=== PATIENT | female | born 1970 | race Caucasian/White ===

== ENCOUNTER 2017-01-12 20:08 | Emergency (ER) | payer BC ==
[~2017-01-12] VITALS: Ht 157.5 cm; Wt 107.9 kg
[~2017-01-12 20:08] MED LIST: ALIGN4 MG PO; AMBIEN5 M1 PO; AMBIEN5 MG; Ativan PO; BACTRIM,SEPT1 TABLET PO; CIPRO500 MG PO; CITALOPRAM HBR20 M1 PO; CLARITIN10 MG PO; CLONAZEPAM0.5 MG PO; DICLOFENAC SODI75 MG PO; FLONASE16 G1 BOTH NARES; IRON PO; IRON325 MG PO; KEFLEX500 MG PO; KLONOPIN0.5 M1 PO; LEXAPRO20 MG PO; LOPRESSOR25 MG PO; LOVAZA1 GM PO; MOTRIN600 MG PO; OMEPRAZOLE40 M1 PO; PAIN & FEVER325 MG PO; PROTONIX40 MG PO; SIMVASTATIN20 M1 PO; SIMVASTATIN40 MG PO; SOMA350 MG PO; TESSALON PERLE100 MG PO; TRAMADOL HCL50 MG PO; TRAZODONE HCL150 MG PO; TRI-SPRINTEC1 EACH PO; ZITHROMAX Z-PA250 MG PO; ZOFRAN4 MG PO; Zocor PO; celeXA PO
[2017-01-12 20:46] LABS: MCH 26.6 PG (29.0-34.0); MCHC 32.2 G/DL (30.0-36.0); MCV 82.6 FL (83-99); MEAN PLAT.VOLUME 8.7 uM^3 (9.5-12.4); PLATELET COUNT 274 K/uL (156-360); RBC DIS.WIDTH-CV 14.9 % (11.8-14.6); RED BLOOD COUNT 4.36 M/uL (3.80-5.20); WHITE BLOOD COUNT 9.8 K/uL (4.1-10.2)
[2017-01-12 20:54] LABS: CHLORIDE 106 mEq/L (99-109); POTASSIUM 4.2 mEq/L (3.7-5.4); SODIUM 138 mEq/L (136-147)
[2017-01-12 20:56] LABS: GLUCOSE 108 mg/dL (70-99)
[2017-01-12 20:57] LABS: ANION GAP 11 MEQ/L (2-14)
[2017-01-12 20:58] LABS: TOTAL BILIRUBIN 0.3 mg/dL (0.0-1.0)
[2017-01-12 21:00] LABS: ALKALINE PHOSPHATASE 51 IU/L (3-129); GFR ESTIMATE (CALCULATED) > 59 mL/min/
[2017-01-12 21:01] LABS: UREA NITROGEN (BUN) 10 mg/dL (9-23)
[2017-01-12 21:08] LABS: QUANTITATIVE HCG < 4.0 MIU/ML
[2017-01-12 22:53] LABS: LIPASE 12 U/L (1.0-51.0)
[2017-01-12 23:47] VITALS: BP 138/83
== END 2017-01-12 23:48 | disposition home or self-care (01) ==
LOC: EME 20:08
DX: R10.10 Upper abdominal pain, unspecified (principal); R19.7 Diarrhea, unspecified; G89.29 Other chronic pain; E78.5 Hyperlipidemia, unspecified; I10 Essential (primary) hypertension; K21.9 Gastro-esophageal reflux disease without esophagitis
CPT/HCPCS: 80053; 81003; 83690; 84702; 85027; 87493; 99281; 99284

== ENCOUNTER 2017-04-17 20:52 | Emergency (ER) | payer BC ==
[~2017-04-17] VITALS: Ht 157.5 cm; Wt 104.5 kg
[2017-04-17 21:46] LABS: HEMATOCRIT 40.9 % (36.0-46.0); MCH 27.5 PG (29.0-34.0); MCV 85.7 FL (83-99); MEAN PLAT.VOLUME 8.7 uM^3 (9.5-12.4); PLATELET COUNT 288 K/uL (156-360); RBC DIS.WIDTH-CV 15.3 % (11.8-14.6); RBC DIS.WIDTH-SD 48.1 % (39-53); RED BLOOD COUNT 4.77 M/uL (3.80-5.20); WHITE BLOOD COUNT 11.6 K/uL (4.1-10.2)
[2017-04-17 22:00] LABS: CHLORIDE 104 mEq/L (99-109); POTASSIUM 4.1 mEq/L (3.7-5.4); SODIUM 133 mEq/L (136-147)
[2017-04-17 22:02] LABS: GLUCOSE 215 mg/dL (70-99)
[2017-04-17 22:03] LABS: ANION GAP 8 MEQ/L (2-14)
[2017-04-17 22:05] LABS: ALKALINE PHOSPHATASE 64 IU/L (3-129)
[2017-04-17 22:06] LABS: GFR ESTIMATE (CALCULATED) > 59 mL/min/
[2017-04-17 22:07] LABS: UREA NITROGEN (BUN) 14 mg/dL (9-23)
[2017-04-17 22:15] LABS: QUANTITATIVE HCG < 4.0 MIU/ML
[2017-04-17 23:26] LABS: ADD MIUA? YES; BILIRUBIN NEGATIVE; BLOOD SMALL; COLOR YELLOW ((YELLOW)); GLUCOSE (STRIP) 50; KETONES NEGATIVE; LEUKOCYTES NEGATIVE; NITRITE NEGATIVE; PROTEIN (STRIP) 100; SPECIFIC GRAVITY 1.034 (1.000-1.030); UROBILINOGEN 0.2 MG/DL (0.2-1.0)
[2017-04-17 23:31] LABS: BACTERIA RARE /HPF; EPITHELIAL CELLS 1+ /HPF; MUCUS TRACE /LPF; RED BLOOD CELLS 0-5 /HPF (0-5); UCUL ADDED? NO; WHITE BLOOD CELLS 0-5 /HPF (0-5)
[2017-04-18] MEDS ORDERED: ZOFRAN ODT4 MG PO (01:44)
[2017-04-18 02:14] VITALS: BP 130/74
== END 2017-04-18 02:15 | disposition home or self-care (01) ==
LOC: EME 20:52
DX: A08.4 Viral intestinal infection, unspecified (principal); R19.7 Diarrhea, unspecified; R11.2 Nausea with vomiting, unspecified; R10.9 Unspecified abdominal pain; K21.9 Gastro-esophageal reflux disease without esophagitis; I10 Essential (primary) hypertension; E78.5 Hyperlipidemia, unspecified
CPT/HCPCS: 80053; 81003; 84702; 85027; 99281; 99285; J1200; J2270; J2405; J2765; J7030; S0028

== ENCOUNTER 2017-04-19 14:09 | Emergency (ER) | payer BC ==
[~2017-04-19] VITALS: Ht 157.5 cm; Wt 104.0 kg
[~2017-04-19 14:09] MED LIST changes: +ZOFRAN ODT4 MG PO
[2017-04-19 14:39] LABS: HEMATOCRIT 37.3 % (36.0-46.0); MCH 27.3 PG (29.0-34.0); MCHC 32.4 G/DL (30.0-36.0); MEAN PLAT.VOLUME 8.6 uM^3 (9.5-12.4); PLATELET COUNT 259 K/uL (156-360); RBC DIS.WIDTH-CV 14.7 % (11.8-14.6); RBC DIS.WIDTH-SD 45.3 % (39-53); RED BLOOD COUNT 4.44 M/uL (3.80-5.20); WHITE BLOOD COUNT 6.4 K/uL (4.1-10.2)
[2017-04-19 14:45] LABS: CHLORIDE 106 mEq/L (99-109); POTASSIUM 3.6 mEq/L (3.7-5.4); SODIUM 138 mEq/L (136-147)
[2017-04-19 14:47] LABS: GLUCOSE 150 mg/dL (70-99)
[2017-04-19 14:48] LABS: ANION GAP 8 MEQ/L (2-14)
[2017-04-19 14:50] LABS: GFR ESTIMATE (CALCULATED) > 59 mL/min/
[2017-04-19 14:51] LABS: UREA NITROGEN (BUN) 6 mg/dL (9-23)
[2017-04-19 14:59] LABS: QUANTITATIVE HCG < 4.0 MIU/ML
[2017-04-19 16:25] LABS: ADD MIUA? YES; BILIRUBIN NEGATIVE; BLOOD SMALL; COLOR YELLOW ((YELLOW)); GLUCOSE (STRIP) NEGATIVE; KETONES NEGATIVE; LEUKOCYTES TRACE; NITRITE NEGATIVE; PROTEIN (STRIP) 30; SPECIFIC GRAVITY 1.011 (1.000-1.030); UROBILINOGEN 0.2 MG/DL (0.2-1.0)
[2017-04-19 16:41] LABS: BACTERIA 2+ /HPF; EPITHELIAL CELLS 3+ /HPF; MUCUS TRACE /LPF; RED BLOOD CELLS NONE SEEN /HPF (0-5); UCUL ADDED? NO; WHITE BLOOD CELLS NONE SEEN /HPF (0-5)
[2017-04-19 17:18] VITALS: BP 112/72
== END 2017-04-19 17:20 | disposition home or self-care (01) ==
LOC: EME 14:09
DX: R11.2 Nausea with vomiting, unspecified (principal); R19.7 Diarrhea, unspecified; E78.5 Hyperlipidemia, unspecified; I10 Essential (primary) hypertension
CPT/HCPCS: 80048; 81003; 84702; 85027; 87493; 99281; 99284; J7030

== ENCOUNTER 2017-09-30 16:16 | Emergency (ER) | payer BC ==
[~2017-09-30] VITALS: Ht 157.5 cm; Wt 106.0 kg
[2017-09-30 16:52] LABS: HEMATOCRIT 39.4 % (36.0-46.0); MCH 28.5 PG (29.0-34.0); MCV 83.8 FL (83-99); MEAN PLAT.VOLUME 9.7 uM^3 (9.5-12.4); PLATELET COUNT 229 K/uL (156-360); RBC DIS.WIDTH-CV 13.5 % (11.8-14.6); RBC DIS.WIDTH-SD 41.2 % (39-53); WHITE BLOOD COUNT 6.9 K/uL (4.1-10.2)
[2017-09-30 16:54] LABS: CARBON DIOXIDE (BICARBONATE) 27.4 MEQ/L (20-31)
[2017-09-30 17:00] LABS: CHLORIDE 98 mEq/L (99-109); POTASSIUM 4.2 mEq/L (3.7-5.4)
[2017-09-30 17:01] LABS: SODIUM 133 mEq/L (136-147)
[2017-09-30 17:04] LABS: ANION GAP 15 MEQ/L (2-14)
[2017-09-30 17:06] LABS: GFR ESTIMATE (CALCULATED) 57 mL/min/
[2017-09-30 17:07] LABS: UREA NITROGEN (BUN) 14 mg/dL (9-23)
[2017-09-30 17:11] LABS: GLUCOSE 452 mg/dL (70-99)
[2017-09-30 17:15] LABS: QUANTITATIVE HCG < 4.0 MIU/ML
[2017-09-30 18:44] LABS: POINT-OF-CARE METER ID UU13113800
[2017-09-30 21:00] LABS: POINT-OF-CARE METER ID UU13113800; POINT-OF-CARE USER ID NUTJLF39
[2017-09-30 21:05] VITALS: BP 111/79
[2017-10-02 10:01] LABS: POINT-OF-CARE METER ID UU13113778; POINT-OF-CARE USER ID NUTJLF39
== END 2017-09-30 21:06 | disposition home or self-care (01) ==
LOC: EME 16:16
PROVIDERS: Physician Assistant Medical
DX: E11.65 Type 2 diabetes mellitus with hyperglycemia (principal); I10 Essential (primary) hypertension; K21.9 Gastro-esophageal reflux disease without esophagitis; E78.5 Hyperlipidemia, unspecified; F41.9 Anxiety disorder, unspecified; F32.9 Major depressive disorder, single episode, unspecified
CPT/HCPCS: 80048; 82010; 82803; 82948; 84702; 85027; 99281; 99284; J7030

== ENCOUNTER 2017-10-01 20:05 | Emergency (ER) | payer BC ==
[~2017-10-01] VITALS: Ht 157.5 cm; Wt 106.4 kg
[2017-10-01 20:23] LABS: POINT-OF-CARE METER ID UU13113778
[2017-10-01 21:21] LABS: HEMATOCRIT 39.8 % (36.0-46.0); MCH 28.6 PG (29.0-34.0); MCHC 34.2 G/DL (30.0-36.0); MCV 83.6 FL (83-99); MEAN PLAT.VOLUME 9.4 uM^3 (9.5-12.4); PLATELET COUNT 255 K/uL (156-360); RBC DIS.WIDTH-CV 13.7 % (11.8-14.6); RBC DIS.WIDTH-SD 41.6 % (39-53); RED BLOOD COUNT 4.76 M/uL (3.80-5.20); WHITE BLOOD COUNT 8.4 K/uL (4.1-10.2)
[2017-10-01 21:27] LABS: ADD MIUA? NO; BILIRUBIN NEGATIVE; BLOOD NEGATIVE; COLOR YELLOW ((YELLOW)); GLUCOSE (STRIP) >=500; KETONES 20; LEUKOCYTES NEGATIVE; NITRITE NEGATIVE; PROTEIN (STRIP) NEGATIVE; UCUL ADDED? NO; UROBILINOGEN 0.2 MG/DL (0.2-1.0)
[2017-10-01 21:30] LABS: CHLORIDE 101 mEq/L (99-109); POTASSIUM 3.9 mEq/L (3.7-5.4); SODIUM 130 mEq/L (136-147)
[2017-10-01 21:32] LABS: GLUCOSE 392 mg/dL (70-99)
[2017-10-01 21:33] LABS: ANION GAP 11 MEQ/L (2-14)
[2017-10-01 21:34] LABS: TOTAL BILIRUBIN 0.4 mg/dL (0.0-1.0)
[2017-10-01 21:36] LABS: ALKALINE PHOSPHATASE 90 IU/L (3-129); GFR ESTIMATE (CALCULATED) > 59 mL/min/
[2017-10-01 21:37] LABS: UREA NITROGEN (BUN) 11 mg/dL (9-23)
[2017-10-01 21:46] LABS: QUANTITATIVE HCG < 4.0 MIU/ML
[2017-10-01 22:55] LABS: POINT-OF-CARE METER ID UU13113747
[2017-10-01 23:03] VITALS: BP 147/75
== END 2017-10-01 23:08 | disposition home or self-care (01) ==
LOC: EME 20:05
PROVIDERS: Physician Assistant
DX: E11.65 Type 2 diabetes mellitus with hyperglycemia (principal); Z79.84 Long term (current) use of oral hypoglycemic drugs; E78.5 Hyperlipidemia, unspecified; I10 Essential (primary) hypertension; F32.9 Major depressive disorder, single episode, unspecified; K21.9 Gastro-esophageal reflux disease without esophagitis; F41.9 Anxiety disorder, unspecified
CPT/HCPCS: 80053; 81003; 82948; 84702; 85027; 99281; 99284